=== PATIENT | male | born 1980 | race African-American/Black ===

== ENCOUNTER 2016-03-31 13:38 | Emergency (ER) | payer OTHER ==
[~2016-03-31] VITALS: Ht 175.3 cm; Wt 72.6 kg
[~2016-03-31 13:38] MED LIST: ALBUTEROL 3 ML3 ML INH; PREDNISONE 10MG10 M1 PO; PREDNISONE10 M2 PO; PROVENTIL0.09 MG/A1 INH; PYRIDIUM100 MG PO; PYRIDIUM200 MG PO; VENTOLIN H0.09 MG/Ac INH; VICODIN5-300 PO; ZITHROMAX250 M2 PO
--- NOTE | 2016-03-31 13:43 | ED GENERAL ADULT ---
History of Present Illness General Chief Complaint: General Adult Stated Complaint: BIBA FROM WALK IN SOB Allergies Uncoded Allergies: POLLEN (Mild, ITCHY/RUNNY EYES/NOSE 08/22/14) (SYLVIA AUGUSTIN DO) General Source: patient Exam Limitations: no limitations Vital Signs & Intake/Output Vital Signs & Intake/Output Vital Signs Date Time Temp Pulse Resp B/P Pulse O2 O2 Flow FiO2 Ox Delivery Rate 03/31 1555 87 18 144/76 98 Room Air 03/31 1533 97 03/31 1450 95 03/31 1349 94 Room Air 03/31 1344 98.9 80 16 141/78 96 Room Air ED Intake and Output 04/01 0000 03/31 1200 Intake Total 0 Output Total Balance 0 Intake, Oral 0 Patient 160 lb Weight Reconcile Medications Albuterol Sulfate (Proair Hfa) 90 MCG HFA.AER.AD 2 PUF INH Q4-6 PRN PRN ASTHMA (Reported) Albuterol Sulfate (Proventil Hfa) 0.09 MG/Actuation GAY 2 PUFF INH Q4H PRN WHEEZING/SHORTNESS OF BREATH Albuterol Sulfate (Proventil) 2.5 MG/3 ML NEB 1 PAC INH Q4P PRN SHORTNESS OF BREATH Azithromycin (Zithromax) 250 MG TABLET 1 TAB PO DAILY BRONCHITIS TAKE 2 PILLS ON DAY 1 AND THEN 1 PILL DAILY FOR 4 MORE DAYS Methylprednisolone. (Medrol) 4 MG TAB.DS.PK 1 DP PO AD INFLAMMATION 6 on day 1 then reduce by one tablet daily until gone Prednisone 10 MG TABLET 1 TAB PO DAILY ASTHMA TAKE 4 PILLS A DAY FOR 3 DAYS THEN TAKE 3 PILLS A DAY FOR 3 DAYS AND TAKE 2 PILLS A DAY FOR 3 DAYS AND TAKE ONE PILL A DAY FOR 3 DAYS Triage Nurses Notes Reviewed? yes Onset: Abrupt Duration: day(s): Timing: recent history HPI: 03/31/16 35-year-old male with a past medical history of asthma presents to the emergency department complaining of difficulty breathing. The patient states he's had difficulty breathing and cough over the past several days. The onset of the symptoms were abrupt, the duration was over the past several days, the severity is significant as he had come to the emergency department for care (SYLVIA AUGUSTIN DO ([facility])) Past History Medical History Neurological: NONE EENT: NONE Cardiovascular: NONE Respiratory: asthma Gastrointestinal: NONE Hepatic: NONE Renal: NONE Musculoskeletal: NONE Psychiatric: depression Endocrine: NONE Blood Disorders: NONE Cancer(s): NONE [employer]ATION SOFTWARE ENGINEER/Reproductive: NONE Tetanus Vaccine: 06/23/13 Surgical History Surgical History: N Psychosocial History What is your primary language Spanish Creole (SYLVIA AUGUSTIN DO) Medical History Any Pertinent Medical History? see below for history Family History Hx Contributory? No (SYLVIA AUGUSTIN DO ([facility])) Review of Systems Review of Systems Constitutional: Denies: fever. EENTM: Denies: visual changes. Respiratory: Reports: cough, short of breath. Cardiovascular: Denies: chest pain (+ chest tightness on breathing). GI: Denies: abdominal pain. Genitourinary: Reports: no symptoms. Musculoskeletal: Reports: no symptoms. Skin: Reports: no symptoms. Neurological/Psychological: Reports: no symptoms. Hematologic/Endocrine: Reports: no symptoms. Immunologic/Allergic: Reports: no symptoms. (SYLVIA AUGUSTIN DO ([facility])) Physical Exam Physical Exam General Appearance: well developed/nourished, alert, awake, anxious, moderate distress Head: atraumatic, normal appearance Eyes: Bilateral: normal appearance, PERRL, EOMI. Ears, Nose, Throat: normal pharynx, normal ENT inspection Neck: normal inspection, supple, full range of motion Respiratory: wheezing, poor air entry Cardiovascular: regular rate/rhythm Peripheral Pulses: 4+ radial (R), 4+ radial (L) Gastrointestinal: soft, non-tender Back: normal range of motion Extremities: no edema Neurologic/Psych: no motor/sensory deficits, awake, alert, oriented x 3 Skin: intact, normal color, warm/dry Core Measures ACS in differential dx? No CVA/TIA Diagnosis: No Severe Sepsis Present: No Septic Shock Present: No (SYLVIA AUGUSTIN DO ([facility])) Progress Differential Diagnoses I considered the following diagnoses in my evaluation of the patient: [Pneumonia , pneumothorax, asthma, bronchitis,] Plan of Care: Orders Procedure Date/time Status RT ED ORDERS 03/31 1530 Active Current Medications Sig/Tory Start time Last Medication Dose Stop Time Status Admin Diazepam 2 MG ONCE ONE 03/31 1530 CAN (Valium) 03/31 1531 Ketorolac 30 MG ONCE ONE 03/31 1530 CAN Tromethamine 03/31 1531 (Toradol) 3:24 PM PATIENT SIGNED OUT TO ME BY DR AUGUSTIN. PENDING SECOND TREATMENT. FEELING BETTER AFTER 2ND DUONEB, TORADOL AND IV VALIUM. STILL WITH SOME REPRODUCIBLE CHEST WALL TENDERNESS. LUNGS CTA, IMPROVED AERATION. (SAVITA LARIOS MD) Initial ED EKG: none (SYLVIA AUGUSTIN DO)) Diagnostic Imaging: Viewed by Me: Radiology Read. Discussed w/RAD: Radiology Read. Comments: PATIENT: JULIAN MAZARIEGOS JR PRESENT AGE: 35 PATIENT ACCOUNT NO: [id number] : 81 LOCATION: [facility] ORDERING PHYSICIAN: SYLVIA AUGUSTIN DO (TBS) SERVICE DATE: 03/31/16141 EXAM TYPE: RAD - XRY-PORTABLE CHEST XRAY EXAMINATION: XR PORTABLE CHEST CLINICAL INFORMATION: Shortness of breath, asthma COMPARISON: 04/17/2006 TECHNIQUE: Portable view of the chest was obtained. FINDINGS: Lungs are clear. No focal consolidation or mass. Normal pulmonary vascularity. No pleural effusion or pneumothorax. Normal heart size. Regional skeleton intact. IMPRESSION: No acute pulmonary disease. No significant change from prior study. DICTATED BY: ROSE MARY LEE MD DATE/TIME DICTATED:03/31/161429 MINUTE CLERK:VALENTINE DATE/TIME TRANSCRIBED:03/31/161429 CONFIDENTIAL, DO NOT COPY WITHOUT APPROPRIATE AUTHORIZATION. <Electronically signed in Other Vendor System> SIGNED BY: ROSE MARY LEE MD [id number] (SAVITA LARIOS MD) Departure Departure Condition: Stable Referrals: PATIENT HAS NO PRIMARY CARE DR (PCP/Family) Departure Forms: Customer Survey General Discharge Information (SYLVIA AUGUSTIN DO) Departure Disposition: HOME OR SELF CARE Clinical Impression Primary Impression: Asthma exacerbation Additional Instructions: Continue your inhaler and take the prednisone as directed. follow up with the list of potential primary care doctors. Return for any changing or worsening symptoms. Prescriptions: Current Visit Scripts Methylprednisolone. (Medrol) 1 DP PO AD #1 DP 6 on day 1 then reduce by one tablet daily until gone (SAVITA LARIOS MD) Critical Care Note Critical Care Note Critical Care Time: 30-74 min (SYLVIA AUGUSTIN DO))
[2016-03-31] MEDS ORDERED: PROAIR HFA8.5 GM INH (13:49)
--- NOTE | 2016-03-31 14:41 | RADIOLOGY REPORT ---
EXAMINATION: XR PORTABLE CHEST CLINICAL INFORMATION: Shortness of breath, asthma COMPARISON: 04/17/2006 TECHNIQUE: Portable view of the chest was obtained. FINDINGS: Lungs are clear. No focal consolidation or mass. Normal pulmonary vascularity. No pleural effusion or pneumothorax. Normal heart size. Regional skeleton intact. IMPRESSION: No acute pulmonary disease. No significant change from prior study.
[2016-03-31 15:55] VITALS: BP 144/76
[2016-03-31] MEDS ORDERED: MEDROL4 M2 PO (16:02)
== END 2016-03-31 16:18 ==
LOC: ERH 13:38
DX: J45.901 Unspecified asthma with (acute) exacerbation (principal)
CPT/HCPCS: 1263; 96374; 96375; 99291; J1885; J2930; J3360